=== PATIENT | male | born 1965 | race Caucasian/White ===

== ENCOUNTER 2017-05-01 10:59 | Outpatient (CLI) | payer OTHER ==
--- OUTSIDE RECORDS SUMMARY | 2017-05-01 11:03 | XMS | Clinical Summary ---
:1965 Author Organization [facility] Address [address] [place] [address] Phone Care Team Providers Name Role Phone , Primary Care Provider Unavailable Allergies Not on File Current Medications Not on file Active Problems Not on file Social History Tobacco Use Types Packs/Day Years Used Date Never Assessed Sex Assigned at Date Recorded Not on file Last Filed Vital Signs Not on file Plan of Treatment Not on file Results Not on filefrom Last 3 Months
[2017-05-01] MEDS ORDERED: Sodium Chloride 0.9% 15 ML NEB ONE (11:11)
--- NOTE | 2017-05-01 12:12 | PRG ---
DATE OF SERVICE: 05/01/2017 SUBJECTIVE: This is a 51-year-old male returns today for followup left midfoot plantar ulceration. He has been doing well over the last 2 weeks. Left Dermagraft dressing in place for [address] arted with Fibracol daily dressing changes for the last week. He has been getting Dermagraft applic ations and is seeing great improvement with this wound. Denies any nausea, vomiting, fevers or chil ls. OBJECTIVE: Wound plantar ulceration left foot measures 0.9 cm x 0.9 cm with about 1 cm of undermini ng in the 10-11 o'clock area, 90% granulation tissue, 10% epithelium. No periwound erythema or bella a, warmth or other signs of infection. 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 PLAN: Full thickness debridement of subcutaneous tissue layer with dermal curet down to a bleeding granular base. Another application of the Dermagraft was applied to the wound and secured with Adap tic touch and then secondary dressing of Kerlix, and Coban. The patient will leave this dressing in place for 1 week and follow up with me in 1 week.
== END 2017-05-01 11:00 | disposition home or self-care (01) ==
LOC: WCC 10:59
PROVIDERS: ATTEND Podiatrist Foot & Ankle Surgery
DX: E11.621 Type 2 diabetes mellitus with foot ulcer (principal); L97.424 Non-pressure chronic ulcer of left heel and midfoot with necrosis of bone
CPT/HCPCS: 15275; A4218; Q4106-KX-JC

== ENCOUNTER 2017-05-08 10:45 | Outpatient (CLI) | payer OTHER ==
--- NOTE | 2017-05-08 12:14 | PRG ---
DATE OF SERVICE: 05/08/2017 SUBJECTIVE: The patient returns for followup left plantar forefoot wound. He has had Dermagraft ap plication last week and has done well with keeping the dressing in place, no concerns since that jose dee Denies any nausea, vomiting, fevers or chills. PHYSICAL EXAMINATION: Ulceration, plantar left foot measuring 1.1 cm x 1.1 cm x 0.1 cm, 100% granula tion tissue to the wound base, some mild periwound area maceration. No periwound erythema, edema or warmth. ASSESSMENT: 1. 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 2. Diabetes with peripheral neuropathy. PLAN: Full thickness debridement of the subcutaneous tissue layer down to a bleeding granular base and application of Dermagraft utilizing the standard technique and secured with Mepitel 1 dressings. Secondary dressing of ABD pads, Kerlix, and Coban. This dressing to be left in place for 1 week. He will follow up in 1 week with me or sooner should he have any concerns before that time.
== END 2017-05-08 10:46 | disposition home or self-care (01) ==
LOC: WCC 10:45
PROVIDERS: ATTEND Podiatrist Foot & Ankle Surgery
DX: E11.621 Type 2 diabetes mellitus with foot ulcer (principal); L97.429 Non-pressure chronic ulcer of left heel and midfoot with unspecified severity; E11.51 Type 2 diabetes mellitus with diabetic peripheral angiopathy without gangrene
CPT/HCPCS: 15275

== ENCOUNTER 2017-05-15 10:54 | Outpatient (CLI) | payer OTHER ==
--- NOTE | 2017-05-15 11:53 | PRG ---
DATE OF SERVICE: 05/15/2017 SUBJECTIVE: This 51-year-old male returns today for followup of plantar left foot ulceration, has b een getting Dermagraft weekly and has left dressing in place, no problems since last week. Denies n ausea, vomiting, fevers, or chills. PHYSICAL EXAMINATION: Ulcer measuring 2.3 x 1.2 cm x 0.1 cm of depth on the plantar left foot, 100% granular wound base, some mild periwound maceration. No periwound erythema, edema, or warmth or ot her signs of infection. ASSESSMENT: 1. 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 2 Diabetes with peripheral neuropathy. PLAN: 1. Full thickness debridement of the subcutaneous wound tissues were performed and then a Dermagraf t application was done utilizing standard technique and covered with Mepitel 1 non-adherent dressing and secondary dressing of ABD pad, Kerlix, and Coban. This dressing will be left in place for 1 we ek. 2. Since I am out next week, he will begin doing Fibracol collagen dressing changes on a daily basi s starting next Thursday until he can see me in 2 weeks, and we will reevaluate and determine if furth er applications are necessary.
== END 2017-05-15 10:55 | disposition home or self-care (01) ==
LOC: WCC 10:54
PROVIDERS: ATTEND Podiatrist Foot & Ankle Surgery
DX: E11.621 Type 2 diabetes mellitus with foot ulcer (principal); L97.424 Non-pressure chronic ulcer of left heel and midfoot with necrosis of bone; E11.51 Type 2 diabetes mellitus with diabetic peripheral angiopathy without gangrene
CPT/HCPCS: 15275; Q4106-KX-JC

== ENCOUNTER 2017-05-25 11:07 | Outpatient (CLI) | payer OTHER ==
--- OUTSIDE RECORDS SUMMARY | 2017-05-27 19:31 | XMS | Clinical Summary ---
:1965 Author Organization [facility] Address [address] [place] [address] Phone Care Team Providers Name Role Phone [...]
== END 2017-05-25 11:08 | disposition home or self-care (01) ==
LOC: WCC 11:07
PROVIDERS: ATTEND Podiatrist Foot & Ankle Surgery
DX: E11.621 Type 2 diabetes mellitus with foot ulcer (principal); L97.424 Non-pressure chronic ulcer of left heel and midfoot with necrosis of bone
CPT/HCPCS: 97602

== ENCOUNTER 2017-05-27 14:03 | Outpatient (CLI) | payer OTHER ==
[2017-05-27] MEDS ORDERED: Sodium Chloride 0.9% 15 ML NEB ONE (17:29)
--- OUTSIDE RECORDS SUMMARY | 2017-05-28 21:09 | XMS | Clinical Summary ---
:1965 Author Organization [facility] Address [address] [place] [address] Phone Care Team Providers Name Role Phone [...]
== END 2017-05-27 14:04 | disposition home or self-care (01) ==
LOC: WCC 14:03
PROVIDERS: ATTEND Podiatrist Foot & Ankle Surgery
DX: L97.924 Non-pressure chronic ulcer of unspecified part of left lower leg with necrosis of bone (principal); E11.621 Type 2 diabetes mellitus with foot ulcer
CPT/HCPCS: 97602; A4218

== ENCOUNTER 2017-05-29 11:07 | Outpatient (CLI) | payer OTHER ==
--- NOTE | 2017-05-29 13:09 | PRG ---
DATE OF SERVICE: 05/29/2017 SUBJECTIVE: A 51-year-old male returns today for followup left plantar foot ulceration. The patien t has done well in the last 2 weeks, first week with Dermagraft dressing and then his daily Fibracol dressing changes with the last week. Denies any nausea, vomiting, fevers, or chills. He has stormy nued to stay offloaded with the rolling scooter. PHYSICAL EXAMINATION: Ulcer measuring 1 cm x 1.3 cm x 0.2 cm of depth, 100% granular wound base, so me mild periwound maceration. No undermining, no probing to deeper tissues. No periwound erythema, edema or warmth. ASSESSMENT: 1. 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 2. Diabetes with peripheral neuropathy. PLAN: 1. Full thickness debridement of the subcutaneous tissue layer removing all biofilm and nonviable t issue from the wound base down to the subcutaneous tissue layer with the dermal curette and applicat ion of Dermagraft was then applied, utilizing standard technique and covered with Mepitel 1 nonadher ent dressing, secondary dressing of 4 x 4's, Kerlix, and Coban be applied, this will be left in plac e for 1 week and follow up with me in 1 week.
--- OUTSIDE RECORDS SUMMARY | 2017-05-29 14:50 | XMS | Clinical Summary ---
:1965 Author Organization [facility] Address [address] [place] [address] Phone Care Team Providers Name Role Phone [...]
== END 2017-05-29 11:08 | disposition home or self-care (01) ==
LOC: WCC 11:07
PROVIDERS: ATTEND Podiatrist Foot & Ankle Surgery
DX: E11.621 Type 2 diabetes mellitus with foot ulcer (principal); L97.424 Non-pressure chronic ulcer of left heel and midfoot with necrosis of bone; E11.42 Type 2 diabetes mellitus with diabetic polyneuropathy
CPT/HCPCS: 15275; Q4106-KX-JC

== ENCOUNTER 2017-06-05 10:55 | Outpatient (CLI) | payer OTHER ==
--- NOTE | 2017-06-05 12:31 | PRG ---
DATE OF SERVICE: 06/05/2017 SUBJECTIVE: This is a 51-year-old male returns today for followup of plantar left ulceration, has b een doing well, leaving the dressing in place, we did a Dermagraft application last week. No proble ms since then and has remained offloading with boot and he had rolling knee scooter. Patient denies nausea, vomiting, fevers or chills. PHYSICAL EXAMINATION: Ulceration on the left plantar foot measures 1.7 cm x 1.3 cm x 0.1 cm 100% gr anular wound base. Minimal periwound maceration. No undermining, no periwound erythema, edema or w armth. ASSESSMENT: Non-pressure chronic ulceration to the left plantar mid foot, continued improvement wit h Dermagraft application. PLAN: Full thickness debridement of the subcutaneous tissue layer removing biofilm and nonviable ti ssue down to a bleeding granular wound base. Another application of the Dermagraft skin substitute was applied utilizing the standard technique and covered with nonadhesive dressing. We will continu e to cover secondarily with 4 x 4s, Kerlix, and Coban. This dressing will be left in place for 1 we ek and he will follow up with me in 1 week.
== END 2017-06-05 10:56 | disposition home or self-care (01) ==
LOC: WCC 10:55
PROVIDERS: ATTEND Podiatrist Foot & Ankle Surgery
DX: E11.621 Type 2 diabetes mellitus with foot ulcer (principal); L97.429 Non-pressure chronic ulcer of left heel and midfoot with unspecified severity
CPT/HCPCS: 15275; Q4106-KX-JC

== ENCOUNTER 2017-07-03 11:00 | Outpatient (CLI) | payer OTHER ==
[2017-07-03] MEDS ORDERED: Sodium Chloride 0.9% 15 ML NEB ONE (17:28)
--- NOTE | 2017-07-04 10:16 | PRG ---
DATE OF SERVICE: 07/03/2017 SUBJECTIVE: This is a 51-year-old male returns for left plantar foot ulceration, continues to do Fib racol daily dressing changes with gauze and Kerlix. He has been offloading with the walking boot in knee scooter. Denies any nausea, vomiting, fevers or chills. He has just recently gotten out of hos pital with a bout of pneumonia, but says he is feeling much better. PHYSICAL EXAMINATION: Left plantar foot ulceration measures 1.8 x 2.0 cm x 0.1 cm. It is 100% granu lar. There is no undermining, no periwound erythema, edema or warmth. ASSESSMENT: Non-pressure chronic ulceration to the left foot. Minimal change in the wound size, alt lefty there is no longer any undermining and I think this is moving in the right direction. PLAN: 1. Full thickness debridement of subcutaneous tissue layer removing all nonviable tissue and biofilm from the wound base down to a bleeding granular wound base. Patient tolerated the procedure well. 2. We are going to continue with Fibracol gauze, Webril, and Morris bandage and dressings on a daily ba sis. Patient will follow up with me in 1 week.
== END 2017-07-03 11:01 | disposition home or self-care (01) ==
LOC: WCC 11:00
PROVIDERS: ATTEND Podiatrist Foot & Ankle Surgery
DX: L97.429 Non-pressure chronic ulcer of left heel and midfoot with unspecified severity (principal)
CPT/HCPCS: 11042; A4218

== ENCOUNTER 2017-07-10 11:01 | Outpatient (CLI) | payer OTHER ==
--- NOTE | 2017-07-10 12:18 | PRG ---
DATE OF SERVICE: 07/10/2017 SUBJECTIVE: A 51-year-old male returns today for left plantar foot ulceration has been doing Fibraco l gauze, Kerlix, and Coban dressing changes. Denies any nausea, vomiting, fevers or chills. PHYSICAL EXAMINATION: Left foot plantar ulceration measuring 2.4 cm x 2.0 cm x 0.1 cm of depth sligh tly larger. There is some periwound hyperkeratosis, 100% granular wound base. No periwound erythema , edema or warmth. ASSESSMENT: 1. 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 2. Diabetes with peripheral neuropathy. PLAN: 1. Full thickness debridement of the subcutaneous tissue layer with dermal curette, removing all bio film and nonviable tissue from the wound base and all hyperkeratosis from the periwound area down to a bleeding granular base. The patient is tolerated the procedure well. 2. We can switch the dressing changes to an Aquacel AG dressing on an every other day basis. He mercedes l follow up with me in 1 week.
== END 2017-07-10 11:02 | disposition home or self-care (01) ==
LOC: WCC 11:01
PROVIDERS: ATTEND Family Medicine
DX: E11.621 Type 2 diabetes mellitus with foot ulcer (principal); L97.529 Non-pressure chronic ulcer of other part of left foot with unspecified severity; E11.42 Type 2 diabetes mellitus with diabetic polyneuropathy
CPT/HCPCS: 11042

== ENCOUNTER 2017-07-17 10:28 | Outpatient (CLI) | payer OTHER ==
--- NOTE | 2017-07-17 15:57 | PRG ---
DATE OF SERVICE: 07/17/2017 SUBJECTIVE: The patient returns for followup left plantar foot ulceration, has been doing every othe r day Aquacel AG dressing changes, has had no problems with these dressing changes. Denies nausea, v omiting, fevers or chills. PHYSICAL EXAMINATION: Ulceration measuring 3 cm x 2 cm x 0.2 cm with 100% granular wound base. No p eriwound erythema or edema. Wound has increased in size since last visit. ASSESSMENT: 1. 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 2. Diabetes with peripheral neuropathy. PLAN: 1. As the wound has increased in size over the last week with dressing change being changed to , we are going to go back to Fibracol dressing change, actually we would like to order dressing for him, although we do not have that here in the clinic to apply today. We will get the applied __ ___. 2. Full thickness debridement of the subcutaneous tissue of the wound base down to a bleeding granul ar wound base with removing all nonviable tissue and biofilm from the wound. The patient tolerated t he procedure well. 3. Because ____ decided to take punch biopsy to rule out any malignancy. We did a 4 mm punch was ta deepti from within the wound base and sent to pathology for gross and microscopic evaluation. The patie nt tolerated the procedure well. 4. We applied the Fibracol dressing today that . He will follow up with me in 3 weeks .
== END 2017-07-17 10:29 | disposition home or self-care (01) ==
LOC: WCC 10:28
PROVIDERS: ATTEND Family Medicine
DX: E11.621 Type 2 diabetes mellitus with foot ulcer (principal); L97.529 Non-pressure chronic ulcer of other part of left foot with unspecified severity; E11.42 Type 2 diabetes mellitus with diabetic polyneuropathy
CPT/HCPCS: 88305

== ENCOUNTER 2017-07-31 10:58 | Outpatient (CLI) | payer OTHER ==
--- NOTE | 2017-07-31 12:44 | PRG ---
DATE OF SERVICE: 07/31/2017 SUBJECTIVE: This 51-year-old male returns today for followup of left plantar foot ulceration. Denvijay s any problems with the dressing changes, has got the Enluxtra and is doing those changes on a daily basis. PHYSICAL EXAMINATION: Ulceration, left plantar foot, measuring 2.4 cm x 2.5 cm x 0.2 cm of depth, 95 % granular tissue and 5% slough. No periwound erythema, edema, or warmth. Pathologic sample report was reviewed, showing no neoplasia. ASSESSMENT: 1. Non-pressure chronic ulceration to the plantar aspect of the left foot. 2. Diabetes with peripheral neuropathy. PLAN: 1. Full-thickness debridement of subcutaneous tissue layer, removing all nonviable tissue and biofil m down to a bleeding granular wound base. Patient tolerated the procedure well. 2. Continue with Enluxtra dressing changes on a daily basis. 3. He will follow up with me in 1 week.
[2017-07-31] MEDS ORDERED: Sodium Chloride 0.9% 15 ML NEB ONE (13:35)
== END 2017-07-31 10:59 | disposition home or self-care (01) ==
LOC: WCC 10:58
PROVIDERS: ATTEND Podiatrist Foot & Ankle Surgery
DX: E11.621 Type 2 diabetes mellitus with foot ulcer (principal); L97.529 Non-pressure chronic ulcer of other part of left foot with unspecified severity; E11.42 Type 2 diabetes mellitus with diabetic polyneuropathy
CPT/HCPCS: 11042; A4218

== ENCOUNTER 2018-08-11 12:46 | Outpatient (CLI) | payer BC, OTHER ==
--- NOTE | 2018-08-11 15:07 | RAD ---
CHEST TWO VIEWS: INDICATIONS: Dyspnea. COMPARISON: 11/04/2016 FINDINGS: Moderate-sized bilateral pleural effusions and evidence of bibasilar infiltrates and/or atelectasis. There is density in the peripheral right mid lung on the frontal view, which probably represents flu id in the fissure, which is noted on the lateral projection. Heart size is upper normal and stable. Vasculature appears normal. IMPRESSION: Moderate-sized bilateral pleural effusions with bibasilar atelectasis. Fluid in the fissures seen al wisam the posterior pleural surface on the lateral view. POS: [facility]
== END 2018-08-11 12:47 | disposition home or self-care (01) ==
LOC: RAD 12:46
PROVIDERS: ATTEND Internal Medicine Pulmonary Disease
DX: R06.00 Dyspnea, unspecified (principal); J98.11 Atelectasis; J90 Pleural effusion, not elsewhere classified
CPT/HCPCS: 71046